=== PATIENT | female | born 1955 | race African-American/Black ===

== ENCOUNTER 2018-10-02 12:30 | Inpatient (IN) | payer OTHER ==
[2018-10-16] MEDS ORDERED: MIDAZOLAM HCL 2 MG/2 ML SINGLE DOSE VIAL ONE ×2 (10:35)
[2018-10-16] MEDS ORDERED: fentaNYL CITRATE 250 MCG/5 ML VIAL ONE (10:35)
[2018-10-16] MEDS ORDERED: SUCCINYLCHOLINE CHLORIDE 200 MG/10 ML VIAL ONE (10:35)
[2018-10-16] MEDS ORDERED: PROPOFOL 20 ML ONE (10:35)
[2018-10-16] MEDS ORDERED: ROCURONIUM BROMIDE 50 MG/5 ML VIAL ONE ×2 (10:36)
[2018-10-16] MEDS ORDERED: dilTIAZem HCL 50 MG/10 ML - 10 ML VIAL IVPB ONE (11:30)
--- NOTE | 2018-10-16 11:33 | HP ---
History & Physical Update - History History: No Change - Physical Physical: No Change - Assessment Assessment: No Change - Plan Plan: No Change (No change since h&p from 10/14.)
[2018-10-16] MEDS ORDERED: ceFAZolin SODIUM 1 GM VIAL IVPB ONE (12:10)
[2018-10-16] MEDS ORDERED: LIDOCAINE 1%/EPI 1:100000 (50 ML MULTI DOSE VIAL) NR ONE ×2 (12:51)
[2018-10-16] MEDS ORDERED: BUPIVACAINE HCL/PF (5 MG/ML) 30 ML VIAL IJ ONE (12:53)
[2018-10-16] MEDS ORDERED: BUPIVACAINE HCL 0.5% 250 MG/50 ML VIAL IJ ONE ×2 (12:55)
[2018-10-16] MEDS ORDERED: NEOSTIGMINE METHYLSULFATE 0.5 MG/1 ML - 10 ML MDV ONE (13:46)
[2018-10-16] MEDS ORDERED: oxyCODONE HCL 5 MG TABLET PO PRN ×2 (14:45)
[2018-10-16] MEDS ORDERED: ALBUTEROL SO4 8 GM HFA INHALER IH PRN (14:53)
[2018-10-16] MEDS ORDERED: morphine CARPU-JECT 2 MG/1 ML DISP.SYRIN IVPUSH PRN (15:02)
[2018-10-16] MEDS ORDERED: ACETAMINOPHEN 1000 MG/100 ML VIAL (NON FORMULARY) IVPB PRN (15:06)
--- NOTE | 2018-10-16 15:08 | OPR ---
Patient Name: Charlene Murray MR#: [id number] Procedure Date: 10/16/2018 Date of Admission: 10/16/2018 Inpatient Procedure Preoperative Diagnosis: 1. Lung cancer; 2. COPD; 3. Former smoker; 4. Schizo-affective disorder; Postoperative Diagnosis: same Procedure: 1. Flexible bronchoscopy; 2. Left vats wedge resection x 2; 3. Lymph node sampling; 4. Intercostal nerve block. Indication: as above Surgeon(s): Dr. Alex Owens; Cosurgeon: Dr. Shabana Gonzalez. Anesthesia: General Endotracheal Wound Classification: Clean Antibiotic Prophylaxis: cefazolin Findings: 1. Bronchoscopy: Normal 2. Thoracoscopy: lesion in LLL superior segment, 50cc serous fluid in chest; lesion in LLL near pulmonary ligament; Specimens: Left lower lobe wedge x 2; pleural fluid; final margin; lymph node Complications: none Drains / Tubes / Catheters: 1 chest tube. Hardware / Implants: na Blood / Fluid Losses: 50cc. Blood / Fluids Administered: per anesthesia Post-Operative Condition: stable Indications: This patient is a 63year-old female referred from Dr. Cole for resection of a pulmonary nodule. She was explained the risks, benefits, and alternatives of a bronchoscopy and left lung resection, and she agreed and understood. All questions were answered. Details of Procedure: The patient was taken into the operating room and placed supine on the table. She was monitored with pulse oximetry and blood pressure monitoring, including an arterial line. Sequential compression devices were placed. Subcutaneous heparin was given and a hillman catheter was placed. She was given sedation and an endotracheal tube was placed. A bronchoscopy was performed to view the airway and for operative planning. Lung isolation was then achieved. She was then positioned in the right lateral decubitus position and lung isolation was confirmed. The chest was prepared and draped in sterile fashion. We placed three ports. We then palpated the lesion. Next we aspirated a small amount of serous fluid and sent it for cytology. There were no pleural lesions. We then divided the pulmonary ligament and sampled level 9. We then performed a lower lobe wedge resection. It was removed through a protected wound. We then identified another nodule in the basilar segment and removed it. We then obtained hemostasis. There was no air- leak. We placed a chest tube and secured it. The lung was expanded again. Wounds were closed with absorbable sutures after expanding the lung. Sterile dressings were placed. The patient was then awakened and extubated. She tolerated the procedure well but was slow in waking up. She will be recovered in the ICU. I will follow her as an inpatient and outpatient after surgery.
[2018-10-16] MEDS ORDERED: ALBUTEROL SO4 0.083% IH SOL 2.5 MG/3 ML VIAL.NEB. NEB ONE ×2 (15:14→16:04)
--- NOTE | 2018-10-16 15:36 | CONSULT ---
Consultation: ICU team REQUESTING PROVIDER: DR Owens CONSULT REQUEST: We have been asked to medically evaluate this patient for ( Post op monitoring ). HISTORY OF PRESENT ILLNESS: 63 y/o f with h/o schizophrenia, asthma/COPD, tobacco dependence quit 2017, and LLL adenocarcinoma,with 1 block dyspnea presents to [facility] for elective Left VATS wedge resection with possible thoracotomy/lobectomy and lymph node sampling. Pt underwent flexible bronchoscopy with left VATS wedge resection x 2; and Lymph node sampling; on the morning of 10/16 without apparent complication and is now admitted to the ICU intubated. She was extubated soon after arrival and is stable on NRB. Pt with left chest tube to LWS. POD#0 REVIEW OF SYSTEMS: CONSTITUTIONAL: Absent: fever, chills, diaphoresis, generalized weakness, malaise, loss of appetite, weight change HEENT: Absent: rhinorrhea, nasal congestion, throat pain, throat swelling, difficulty swallowing, mouth swelling, ear pain, eye pain, visual changes CARDIOVASCULAR: Absent: chest pain, syncope, palpitations, irregular heart rate, lightheadedness , peripheral edema RESPIRATORY: Absent: cough, shortness of breath, dyspnea with exertion, orthopnea, wheezing, stridor, hemoptysis GASTROINTESTINAL: Absent: abdominal pain, abdominal distension, nausea, vomiting, diarrhea, constipation, melena, hematochezia GENITOURINARY: Absent: dysuria, frequency, urgency, hesitancy, hematuria, flank pain, genital pain MUSCULOSKELETAL: Absent: myalgia, arthralgia, joint swelling, back pain, neck pain SKIN: Absent: rash, itching, pallor HEMATOLOGIC/IMMUNOLOGIC: Absent: easy bleeding, easy bruising, lymphadenopathy, frequent infections ENDOCRINE: Absent: unexplained weight gain, unexplained weight loss, heat intolerance, cold intolerance NEUROLOGIC: Absent: headache, focal weakness or paresthesias, dizziness, unsteady gait, seizure, mental status changes, bladder or bowel incontinence PSYCHIATRIC: Absent: anxiety, depression, suicidal or homicidal ideation, hallucinations. PHYSICAL EXAMINATION Vital Signs - 24 hr 10/16/18 10/16/18 10/16/18 10:21 10:23 10:24 Temperature 98.1 F 98.1 F Pulse Rate 59 L 59 L Respiratory 20 20 Rate Blood Pressure 122/76 122/76 O2 Sat by Pulse 99 Oximetry (%) GENERAL: AAOx3 in NAD HEAD: Normal with no signs of trauma. EYES: Pupils equal, round and reactive to light, extraocular movements intact, sclera anicteric, NECK: Normal range of motion, supple LUNGS:decrease breath sound at the bases , chest tube on left side drainging with gravity HEART: Regular rate and rhythm, normal S1 and S2 without murmur, rub or gallop. ABDOMEN: Soft, nontender, not distended, normoactive bowel sounds, no guarding, UPPER EXTREMITIES: 2+ pulses, warm, well-perfused. No cyanosis. No clubbing. Cap refill <2 seconds. No peripheral edema. LOWER EXTREMITIES: 2+ pulses, warm, well-perfused. No calf tenderness. No peripheral edema. NEUROLOGICAL: Cranial nerves II-XII intact. Normal speech. PSYCHIATRIC: Cooperative. SKIN: Warm, dry, Laboratory Results - last 24 hr 10/16/18 09:40 Blood Type B POSITIVE Antibody Screen Negative Active Medications Generic Name Dose Route Start Last Admin Trade Name Freq PRN Reason Stop Dose Admin Acetaminophen 1,000 mg 10/16/18 15:06 Ofirmev Injection - IVPB Q6H PRN PAIN LEVEL 4 - 6 Albuterol Sulfate 2 puff 10/16/18 14:53 Ventolin Hfa Inhaler - IH Q4HWA PRN SHORTNESS OF BREATH Chlorhexidine Gluconate 1 applic 10/16/18 22:00 Hibiclens For Decolonization - TP HS KEDAR Docusate Sodium 100 mg 10/16/18 22:00 Colace - PO TID KEDAR Fluoxetine HCl 20 mg 10/17/18 10:00 Prozac - PO DAILY KEDAR Heparin Sodium (Porcine) 5,000 unit 10/16/18 22:00 Heparin - SQ BID KEDAR Cefazolin Sodium 1 gm in 50 mls @ 100 mls/hr 10/16/18 20:00 Ancef 1 Gm Premixed Ivpb - IVPB 10/17/18 04:29 Q8H KEDAR Ipratropium Mineral 1 amp 10/16/18 16:00 Atrovent 0.02% Nebulizer - NEB RQID KEDAR [place] Carbonate 300 mg 10/16/18 22:00 Eskalith - PO BID KEDAR Mupirocin 1 applic 10/16/18 22:00 Bactroban Ointment (For Decolonization) - NS 10/21/18 21:59 BID [facility] Non-Formulary Medication 1 puff 10/17/18 10:00 Umeclidinium [place]eral [Incruse Ellipta] IH DAILY KEDAR Olanzapine 15 mg 10/17/18 10:00 Zyprexa - PO DAILY KEDAR Oxycodone HCl 5 mg 10/16/18 14:45 Roxicodone - PO Q4H PRN PAIN LEVEL 1-5 Senna 2 tab 10/16/18 22:00 Senna - PO HS KEDAR CBC, BMP 10/16/18 17:00 ASSESSMENT/PLAN: 63 y/o f with h/o schizophrenia, asthma/COPD, tobacco dependence quit 2016, and LLL adenocarcinoma,with 1 block dyspnea presents to [facility] for elective Left VATS wedge resection # S/P Flexible bronchoscopy; with Left vats wedge resection x 2; and Lymph node sampling; Intercostal nerve block. 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 Thank you for this consultative opportunity. Visit type - Emergency Visit Emergency Visit: Yes ED Registration Date: 10/16/18 Care time: The patient presented to the Emergency Department on the above date and was hospitalized for further evaluation of their emergent condition. - New Patient This patient is new to me today: Yes Date on this admission: 10/16/18 - Critical Care Critical Care patient: Yes Total Critical Care Time (in minutes): 45 Critical Care Statement: The care of this patient involved high complexity decision making to prevent further life threatening deterioration of the patient 's condition and/or to evaluate & treat vital organ system(s) failure or risk of failure.
[2018-10-16] MEDS ORDERED: ONDANSETRON 4 MG/2 ML VIAL IVPUSH PRN (16:01)
[2018-10-16] MEDS: IPRATROPIUM BR 0.02% 0.5 MG/2.5 ML VIAL.NEB. NEB SCH ×2 (16:02→20:30)
[2018-10-16] MEDS ORDERED: LACTATED RINGERS SOLUTION 1,000 ML IV SCH (16:15)
--- NOTE | 2018-10-16 16:27 | HP ---
Admitting History and Physical - Admission Chief Complaint: Primary Lung adenocarcinoma History of Present Illness: 63 y/o f with h/o schizophrenia, asthma/COPD, tobacco dependence quit 2017, and LLL adenocarcinoma,with 1 block dyspnea presents to [facility] for elective Left VATS wedge resection with possible thoracotomy/lobectomy and lymph node sampling. Pt underwent flexible bronchoscopy with left VATS wedge resection x 2; and Lymph node sampling; on the morning of 10/16 without apparent complication and is now admitted to the ICU intubated. She was extubated soon after arrival and is stable on NRB. Pt with left chest tube to LWS. History Source: Medical Record - Past Medical History Pulmonary: Yes: Asthma, COPD ...: No Psych: Yes: Schizophrenia - Past Surgical History Past Surgical History: Yes: Appendectomy Additional Past Surgical History: thymic cyst resection hemorroidectomy - Smoking History Smoking history: Former smoker Have you smoked in the past 12 months: No Aproximately how many cigarettes per day: 1 (PPD) If you are a former smoker, when did you quit?: 2017 - Alcohol/Substance Use Hx Alcohol Use: No History of Substance Use: reports: None - Social History ADL: Independent History of Recent Travel: No Home Medications - Allergies Allergies/Adverse Reactions: Allergies Allergy/AdvReac Type Severity Reaction Status Date / Time No Known Allergies Allergy Verified 10/16/18 10:32 - Home Medications Home Medications: Ambulatory Orders [employer] Carbonate [Eskalith -] 300 mg PO BID 05/15/18 Fluoxetine HCl [Prozac] 20 mg PO DAILY 05/16/18 Albuterol Sulfate Inhaler - [Ventolin HFA Inhaler -] 2 puff IH Q4HWA PRN Umeclidinium [place] [Incruse Ellipta] 1 puff IH DAILY 05/17/18 Aspirin 162 mg PO DAILY 09/27/18 Olanzapine [Zyprexa -] 15 mg PO DAILY 10/16/18 Family Disease History - Family Disease History Family Disease History: Other: Father ( (80s) PNA), Mother (alive unknown health hx) Review of Systems - Review of Systems Constitutional: reports: Weakness Eyes: reports: No Symptoms HENT: reports: No Symptoms Neck: reports: No Symptoms Cardiovascular: reports: Shortness of Breath Respiratory: reports: Cough, Exercise Intolerance (decreased), SOB on Exertion Gastrointestinal: reports: Nausea (post -op) Genitourinary: reports: No Symptoms, Other (hillman present) Breasts: reports: No Symptoms Reported Musculoskeletal: reports: No Symptoms Integumentary: reports: No Symptoms Neurological: reports: No Symptoms Endocrine: reports: No Symptoms Hematology/Lymphatic: reports: No Symptoms Physical Examination Vital Signs: Vital Signs Temperature 98.1 F 10/16/18 10:24 Pulse Rate 59 L 10/16/18 10:24 Respiratory Rate 20 10/16/18 10:24 Blood Pressure 122/76 10/16/18 10:24 O2 Sat by Pulse Oximetry (%) 99 10/16/18 10:23 Constitutional: Yes: Well Nourished, No Distress, Calm Eyes: Yes: Conjunctiva Clear, PERRL HENT: Yes: Atraumatic, Normocephalic Neck: Yes: Supple, Trachea Midline Cardiovascular: Yes: Bradycardia Respiratory: Yes: Regular, Diminished (Left lung monet), Other (NRB) Gastrointestinal: Yes: Soft, Hypoactive Bowel Sounds ...Rectal Exam: Yes: Deferred Renal/: Yes: Hillman Present Musculoskeletal: Yes: Muscle Weakness Extremities: Yes: WNL Edema: No Peripheral Pulses WNL: Yes Peripheral Pulses: Left Radial: 2+, Right Radial: 2+, Left Doralis Pedis: 2+, Right Dorsalis Pedis: 2+ Integumentary: Yes: WNL Wound/Incision: Yes: Dressing Dry and Intact Neurological: Yes: Alert, Oriented ...Motor Strength: WNL Psychiatric: Yes: Alert, Oriented Imaging - Results Chest X-ray: Pending, Report Reviewed (CXR 09/27/2018 Impression: 2 views of the chest reveal sign of infiltrate or failure. There is an ill-defined lung density in the left midlung field with some fullness of the right superior mediastinum by the thoracic inlet. There is an unfolded aorta, normal heart, normal shayy. There are degenerative changes.) Cat Scan: Report Reviewed (CT chest 08/30/2018 Impression: The heart is normal in size. There is trace pleural and small pericardial effusion. There is emphysema. There is scarring in the lingula and right middle lobe. There is a spiculated nodule neoplasms.), Image Reviewed (CT chest 09/27/2018 Impression: increase in size of the mediastinal lesion to 8x7x5.3cm (previously 6x4.4x2.3cm) . Spiculated lesion LLL 1.7x 1.1cm.) Other: Report Reviewed (CT guided biopsy 05/16/2018 Impression: invasive adenocarcinoma, poorly differentiated. CK7 and TTF-1 positive.) Problem List - Problems (1) COPD with asthma Assessment/Plan: restart incruse inh daily albuterol nebs PRN ventolin inh qid Code(s): J44.9 - CHRONIC OBSTRUCTIVE PULMONARY DISEASE, UNSPECIFIED (2) Adenocarcinoma, lung Assessment/Plan: s/p wedge resection s/p extubation--> NRB. monitor resp status/ABG and transition to NC as tolerated progress diet slowly, clear liquids this afternoon. cefAzolin 1gm Q8hrs LR @ 75ml/hr x 1L Oxycodone 5mg qhrs PRN pain chest tube to LWS, closely monitor output Code(s): C34.90 - MALIGNANT NEOPLASM OF UNSP PART OF UNSP BRONCHUS OR LUNG (3) Schizophrenia Assessment/Plan: continue prozac 20mg daily, lithium 300mg BID and zyprexa 15mg daily Code(s): F20.9 - SCHIZOPHRENIA, UNSPECIFIED (4) Prophylactic measure Assessment/Plan: bowel regimen: senna and colace Zofran PRN nausea Tylenol PRN temp > 101.0 OOB to chair in AM trend WBC and temp curve DVT PPX: SC heparin BID Code(s): Z29.9 - ENCOUNTER FOR PROPHYLACTIC MEASURES, UNSPECIFIED Assessment/Plan DISPO: Full code Fall precautions Home when stable pt will f/u with oncology and pulm upon discharge Visit type - Emergency Visit Emergency Visit: No - New Patient This patient is new to me today: Yes Date on this admission: 10/16/18 - Critical Care Critical Care patient: Yes Total Critical Care Time (in minutes): 40 Critical Care Statement: The care of this patient involved high complexity decision making to prevent further life threatening deterioration of the patient 's condition and/or to evaluate & treat vital organ system(s) failure or risk of failure.
[2018-10-16 16:50] LABS: ARTERIAL BLD GAS O2 SATURATION 94.6 % (90-98.9); ARTERIAL BLOOD GAS BASE EXCESS -3.4 meq/l (-2-2); ARTERIAL BLOOD GAS PCO2 50.2 mmHg (35-45); ARTERIAL BLOOD GAS PO2 86.1 mmHg (80-100); ARTERIAL BLOOD GAS pH 7.29 (7.35-7.45)
[2018-10-16 16:52] LABS: ALLENS TEST POSITIVE
[2018-10-16 18:16] LABS: HEMATOCRIT 40.5 % (32.4-45.2); HEMOGLOBIN 13.7 GM/dL (10.7-15.3); MCH 33.7 pg (25.7-33.7); MCHC 33.8 g/dl (32.0-36.0); MEAN CELL VOLUME 99.8 fl (80-96); MEAN PLT VOLUME 8.8 fl (7.5-11.1); PLATELET COUNT 139 K/MM3 (134-434); RBC 4.06 M/mm3 (3.60-5.2); RDW 15.3 % (11.6-15.6); WHITE BLOOD COUNT 7.6 K/mm3 (4.0-10.0)
[2018-10-16 18:50] LABS: ALBUMIN 3.4 g/dl (3.4-5.0); ALK PHOS 75 U/L (45-117); ANION GAP 8 MMOL/L (8-16); BILIRUBIN,TOTAL 0.2 mg/dL (0.2-1); BLOOD UREA NITROGEN 10 mg/dL (7-18); CALCIUM 8.6 mg/dL (8.5-10.1); CHLORIDE 113 mmol/L (98-107); CO2 25 mmol/L (21-32); CREATININE 0.6 mg/dL (0.55-1.3); GLUCOSE,RANDOM 118 mg/dL (74-106); MAGNESIUM 1.8 mg/dL (1.8-2.4); PHOSPHOROUS 3.4 mg/dL (2.5-4.9); SGOT/AST 12 U/L (15-37); SGPT/ALT 20 U/L (13-61); SODIUM 146 mmol/L (136-145); TOT PROT 5.4 g/dl (6.4-8.2)
[2018-10-16] MEDS ORDERED: PT OWN MED DRAWER 7, Y5N ONE (20:53)
[2018-10-16] MEDS: CEFAZOLIN 1 GM/D5W 1 GM/50 ML BAG IVPB SCH (21:20)
[2018-10-16] MEDS: DOCUSATE SODIUM 100 MG CAPSULE (FP) PO SCH (21:22)
[2018-10-16] MEDS: SENNOSIDES 8.6MG TABLET (FP) PO SCH (21:22)
[2018-10-16] MEDS: HEPARIN NA (PORCINE) 5,000 UNITS/ML 1ML VIAL SQ SCH (21:22)
[2018-10-16] MEDS: MUPIROCIN 2% TOPICAL OINTMENT FOR DECOLONIZATION NS SCH (21:28)
[2018-10-16] MEDS: CHLORHEXIDINE GLUCONATE 4% CLEANSER FOR DECOLONIZATION TP SCH (22:30)
[2018-10-16] MEDS: LITHIUM CARBONATE 300 MG CAPSULE (FP) PO SCH (22:30)
[2018-10-17] MEDS ORDERED: oxyCODONE HCL 5 MG TABLET PO ONE ×2 (01:15→01:21)
[2018-10-17] MEDS: CEFAZOLIN 1 GM/D5W 1 GM/50 ML BAG IVPB SCH (04:00)
[2018-10-17 06:16] LABS: BASO % 0.1 % (0-2.0); HEMATOCRIT 36.2 % (32.4-45.2); HEMOGLOBIN 12.5 GM/dL (10.7-15.3); LYMPH % 13.5 % (8-40); MCH 33.6 pg (25.7-33.7); MCHC 34.6 g/dl (32.0-36.0); MEAN CELL VOLUME 97.1 fl (80-96); MEAN PLT VOLUME 8.5 fl (7.5-11.1); MONO % 7.5 % (3.8-10.2); NEUT % 78.9 % (42.8-82.8); PLATELET COUNT 140 K/MM3 (134-434); RBC 3.73 M/mm3 (3.60-5.2); RDW 14.3 % (11.6-15.6); WHITE BLOOD COUNT 6.1 K/mm3 (4.0-10.0)
[2018-10-17] MEDS: DOCUSATE SODIUM 100 MG CAPSULE (FP) PO SCH ×3 (06:17→21:05)
[2018-10-17 06:27] LABS: INR 1.07 (0.83-1.09); PROTHROMBIN TIME (PATIENT) 12.6 SEC (9.7-13.0)
[2018-10-17 06:29] LABS: ACTIVATED PTT 29.1 SECONDS (25.2-36.5)
[2018-10-17 06:43] LABS: ALK PHOS 67 U/L (45-117); ANION GAP 4 MMOL/L (8-16); BILIRUBIN,TOTAL 0.4 mg/dL (0.2-1); BLOOD UREA NITROGEN 8 mg/dL (7-18); CALCIUM 8.5 mg/dL (8.5-10.1); CHLORIDE 112 mmol/L (98-107); CO2 28 mmol/L (21-32); CREATININE 0.6 mg/dL (0.55-1.3); GLUCOSE,RANDOM 100 mg/dL (74-106); PHOSPHOROUS 2.9 mg/dL (2.5-4.9); POTASSIUM 3.7 mmol/L (3.5-5.1); SGOT/AST 10 U/L (15-37); SGPT/ALT 14 U/L (13-61); SODIUM 144 mmol/L (136-145); TOT PROT 5.1 g/dl (6.4-8.2)
[2018-10-17] MEDS: IPRATROPIUM BR 0.02% 0.5 MG/2.5 ML VIAL.NEB. NEB SCH ×4 (08:15→20:10)
--- NOTE | 2018-10-17 08:40 | PN ---
Physical Exam: SUBJECTIVE: Patient seen and examined this morning in ICU. S/P Left VATS wedge resection and was extubated in the ICU yesterday. No acute events overnight. Has 5/10 Dull, pain that only occurs with movement and improves with pain medication. Chest tube in place. Surgical site intact with overlying dressing, no active drainage, no surrounding erythema or edema. Denies any overnight fevers, chills, chest pain, SOB, Nausea, vomiting, diarrhea, constipation. OBJECTIVE: Vital Signs Period Temp Pulse Resp BP Sys/Ernst Pulse Ox Last 24 Hr 96.2 F-98.1 F 50-82 14-24 110-144/55-84 92-100 GENERAL: A&Ox3, NAD HEAD: NCAT EYES: PERRL, EOMI ENT: Moist mucous membranes. NECK: Supple. LUNGS: Diminished breath sounds at the bases, No wheezes, no crackles HEART: Regular rate and rhythm, S1, S2 without murmur ABDOMEN: Soft, nontender, nondistended, + bowel sounds, no guarding EXTREMITIES: 2+ pulses, warm, well-perfused, no edema. NEUROLOGICAL: Cranial nerves II through XII grossly intact. Normal speech. Gross sensation intact globally. 5/5 muscle strength b/l SKIN: Warm, dry. Midaxillary Left Chest tube insertion site C/D/I. Surgical site dressing on the Left Back C/D/I. Laboratory Results - last 24 hr 10/16/18 10/17/18 10/17/18 17:00 05:30 05:30 WBC 6.1 RBC 3.73 Hgb 12.5 Hct 36.2 MCV 97.1 H MCH 33.6 MCHC 34.6 RDW 14.3 Plt Count 140 MPV 8.5 Absolute Neuts (auto) 4.8 Neutrophils % 78.9 D Lymphocytes % 13.5 D Monocytes % 7.5 Eosinophils % 0.0 Basophils % 0.1 Nucleated RBC % 0 PT with INR INR PTT (Actin FS) Anticoagulation Therapy Puncture Site ABG pH ABG pCO2 at Pt Temp ABG pO2 at Pt Temp ABG HCO3 ABG O2 Sat (Measured) ABG O2 Content ABG Base Excess Tien Test O2 Delivery Device Oxygen Flow Rate Vent Mode Vent Rate Mechanical Rate Pressure Support Vent Sodium 146 H 144 Potassium 4.0 3.7 Chloride 113 H 112 H Carbon Dioxide 25 28 Anion Gap 8 4 L BUN 10 8 Creatinine 0.6 0.6 Creat Clearance w eGFR > 60 > 60 Random Glucose 118 H 100 Calcium 8.6 8.5 Phosphorus 3.4 2.9 Magnesium 1.8 2.0 Total Bilirubin 0.2 0.4 AST 12 L 10 L ALT 20 14 Alkaline Phosphatase 75 67 Total Protein 5.4 L 5.1 L Albumin 3.4 3.0 L Blood Type Antibody Screen 10/17/18 05:30 WBC RBC Hgb Hct MCV MCH MCHC RDW Plt Count MPV Absolute Neuts (auto) Neutrophils % Lymphocytes % Monocytes % Eosinophils % Basophils % Nucleated RBC % PT with INR 12.60 INR 1.07 PTT (Actin FS) 29.1 Anticoagulation Therapy Puncture Site ABG pH ABG pCO2 at Pt Temp ABG pO2 at Pt Temp ABG HCO3 ABG O2 Sat (Measured) ABG O2 Content ABG Base Excess Tien Test O2 Delivery Device Oxygen Flow Rate Vent Mode Vent Rate Mechanical Rate Pressure Support Vent Sodium Potassium Chloride Carbon Dioxide Anion Gap BUN Creatinine Creat Clearance w eGFR Random Glucose Calcium Phosphorus Magnesium Total Bilirubin AST ALT Alkaline Phosphatase Total Protein Albumin Blood Type Antibody Screen Microbiology 10/16/18 12:45 Tissue-Other ANA LAURA Preparation - Preliminary 10/16/18 12:45 Tissue-Other Fungal Culture - Preliminary Active Medications Acetaminophen (Ofirmev Injection -) 1,000 mg IVPB Q6H PRN PRN Reason: PAIN LEVEL 4 - 6 Last Admin: 10/16/18 21:26 Dose: 1,000 mg Albuterol Sulfate (Ventolin Hfa Inhaler -) 2 puff IH Q4HWA PRN PRN Reason: SHORTNESS OF BREATH Chlorhexidine Gluconate (Hibiclens For Decolonization -) 1 applic TP HS [facility] Last Admin: 10/16/18 22:30 Dose: 1 applic Docusate Sodium (Colace -) 100 mg PO TID [facility] Last Admin: 10/17/18 06:17 Dose: 100 mg Fluoxetine HCl (Prozac -) 20 mg PO DAILY [facility] Heparin Sodium (Porcine) (Heparin -) 5,000 unit SQ BID [facility] Last Admin: 10/16/18 21:22 Dose: 5,000 unit Lactated Ringer's (Lactated Ringers Solution) 1,000 mls @ 75 mls/hr IV ASDIR [facility] Last Admin: 10/17/18 01:29 Dose: 75 mls/hr Ipratropium [place] (Atrovent 0.02% Nebulizer -) 1 amp NEB RQID [facility] Last Admin: 10/16/18 20:30 Dose: 1 amp [place] Carbonate (Eskalith -) 300 mg PO BID [facility] Last Admin: 10/16/18 22:30 Dose: 300 mg Mupirocin (Bactroban Ointment (For Decolonization) -) 1 applic NS BID [facility] Stop: 10/21/18 21:59 Last Admin: 10/16/18 21:28 Dose: 1 applic Non-Formulary Medication (Umeclidinium [place] [Incruse Ellipta]) 1 puff IH DAILY [facility] Olanzapine (Zyprexa -) 15 mg PO DAILY [facility] Ondansetron HCl (Zofran Injection) 4 mg IVPUSH Q6H PRN PRN Reason: NAUSEA AND/OR VOMITING Oxycodone HCl (Roxicodone -) 10 mg PO Q4H PRN PRN Reason: PAIN LEVEL 6-10 Senna (Senna -) 2 tab PO HS [facility] Last Admin: 10/16/18 21:22 Dose: 2 tab ASSESSMENT/PLAN: 63 y/o F with PMHx of Schizophrenia, Asthma/COPD, LLL adenocarcinoma will be monitored in ICU s/p Left VATS wedge resection. #Neuro Hx of Schizophrenia -Resume home dose Fluoxetine, [place], Olanzapine #Cardio -No hx of Cardiac disease -No Active Issues, Continue to monitor #Pulmonary Hx of COPD with Asthma -Extubated 10/16 -Saturating well via 3L Nasal [place] -Continue Supplemental O2 to maintain SpO2 >90% -Chest Tube in Place -Daily CXR -Continue Albuterol, Ipratropium, Umeclidinium [place] -CXR (10/16): A single view the chest reveals a weak inspiration with congestive changes, prominent mediastinum, left subcutaneous air and left chest tube. A gross pneumothorax is not seen #GI -Bowel Regimen via Colace, Senna -Ondansetron for Nausea #Renal -No Active Issues, Continue to monitor #Heme/Onc Adenocarcinoma of the Lung -S/P Left VATS wedge resection POD#1 -Pain control via Acetaminophen, Oxycodone -LR @ 75 mls/hr -Diet advanced to Regular as per surgery -Keep HOB elevated -Continue Incentive Spirometry -Maintain Chest tube to water seal -Pathology report pending #Endo -No Active Issues, Continue to monitor #ID -S/P Cefazolin perioperatively -Remains Afebrile, No elevated WBC count -No Active Issues, Continue to monitor #FEN -LR @ 75 mls/hr -Replete Lytes PRN -Regular Diet #PPx -DVT: Heparin TID Code status: Full Code Dispo: Transfer to Tele Visit type - Emergency Visit Emergency Visit: Yes ED Registration Date: 10/16/18 Care time: The patient presented to the Emergency Department on the above date and was hospitalized for further evaluation of their emergent condition. - New Patient This patient is new to me today: Yes Date on this admission: 10/17/18 - Critical Care Critical Care patient: Yes Total Critical Care Time (in minutes): 45 Critical Care Statement: The care of this patient involved high complexity decision making to prevent further life threatening deterioration of the patient 's condition and/or to evaluate & treat vital organ system(s) failure or risk of failure.
[2018-10-17] MEDS ORDERED: PT OWN MED DRAWER 7, Y5N ONE (08:54)
[2018-10-17] MEDS: FLUoxetine HCL 20 MG CAPSULE (FP) PO SCH (09:04)
[2018-10-17] MEDS: LITHIUM CARBONATE 300 MG CAPSULE (FP) PO SCH ×2 (09:05→21:05)
[2018-10-17] MEDS: OLANZapine 5 MG TABLET PO SCH (09:05)
[2018-10-17] MEDS: MUPIROCIN 2% TOPICAL OINTMENT FOR DECOLONIZATION NS SCH ×2 (09:06→21:05)
[2018-10-17] MEDS: HEPARIN NA (PORCINE) 5,000 UNITS/ML 1ML VIAL SQ SCH ×3 (09:07→21:05)
--- NOTE | 2018-10-17 09:24 | PN ---
Progress Note (short form) - Note Progress Note: Anesthesia postop note 63 y/o F s/p GA for VATS POD#1, vss, aaox3, pain well controlled, no complaints. No anesthesia complications.
[2018-10-17] MEDS ORDERED: PATIENT'S OWN MEDICATION (NON-FORMULARY) (Umeclidinium Bromide [Incruse Ellipta] 1 PUFF) IH SCH (10:00)
--- NOTE | 2018-10-17 10:47 | PN ---
Progress Note (short form) - Note Progress Note: POD#1 s/p vats lung resection x 2 for cancer Looks great Pain controlled well Vitals wnl OOB to chair already. Drainage from ct high but serosanguineous plan: Ambulate, can transfer to SDU or other monitored unit, water seal chest tube with cxr (if drainage low, dc tomorrow), appreciate hospitalist team with help managing her.
--- NOTE | 2018-10-17 12:25 | PN ---
Physical Exam: SUBJECTIVE: Patient seen and examined. Complains of itching near insertion site , no sob, pain managed with pain meds OBJECTIVE: Vital Signs Period Temp Pulse Resp BP Sys/Ernst Pulse Ox Last 24 Hr 96.2 F-96.6 F 50-82 14-24 110-144/55-84 92-100 PE Neuro: alert, awake, cn 2-12intact HEENT: dry mm Pulm: course, scattered rhonchi, + left CT with serosanguinous drainage CV: s1s2 rrr no mrg Abd: s nt nd + bs Ext: no le edema Laboratory Results - last 24 hr 10/16/18 10/16/18 10/16/18 16:42 17:00 17:00 WBC 7.6 RBC 4.06 Hgb 13.7 Hct 40.5 MCV 99.8 H MCH 33.7 MCHC 33.8 RDW 15.3 D Plt Count 139 MPV 8.8 Absolute Neuts (auto) Neutrophils % Lymphocytes % Monocytes % Eosinophils % Basophils % Nucleated RBC % PT with INR INR PTT (Actin FS) Anticoagulation Therapy No Result Required. Puncture Site Left radial ABG pH 7.29 L ABG pCO2 at Pt Temp 50.2 H ABG pO2 at Pt Temp 86.1 ABG HCO3 23.1 ABG O2 Sat (Measured) 94.6 ABG O2 Content 17.5 ABG Base Excess -3.4 L Tien Test Positive O2 Delivery Device Nrb Oxygen Flow Rate Yes Vent Mode No Result Required. Vent Rate No Result Required. Mechanical Rate No Result Required. Pressure Support Vent No Result Required. Sodium 146 H Potassium 4.0 Chloride 113 H Carbon Dioxide 25 Anion Gap 8 BUN 10 Creatinine 0.6 Creat Clearance w eGFR > 60 Random Glucose 118 H Calcium 8.6 Phosphorus 3.4 Magnesium 1.8 Total Bilirubin 0.2 AST 12 L ALT 20 Alkaline Phosphatase 75 Total Protein 5.4 L Albumin 3.4 10/17/18 10/17/18 10/17/18 05:30 05:30 05:30 WBC 6.1 RBC 3.73 Hgb 12.5 Hct 36.2 MCV 97.1 H MCH 33.6 MCHC 34.6 RDW 14.3 Plt Count 140 MPV 8.5 Absolute Neuts (auto) 4.8 Neutrophils % 78.9 D Lymphocytes % 13.5 D Monocytes % 7.5 Eosinophils % 0.0 Basophils % 0.1 Nucleated RBC % 0 PT with INR 12.60 INR 1.07 PTT (Actin FS) 29.1 Anticoagulation Therapy Puncture Site ABG pH ABG pCO2 at Pt Temp ABG pO2 at Pt Temp ABG HCO3 ABG O2 Sat (Measured) ABG O2 Content ABG Base Excess Tien Test O2 Delivery Device Oxygen Flow Rate Vent Mode Vent Rate Mechanical Rate Pressure Support Vent Sodium 144 Potassium 3.7 Chloride 112 H Carbon Dioxide 28 Anion Gap 4 L BUN 8 Creatinine 0.6 Creat Clearance w eGFR > 60 Random Glucose 100 Calcium 8.5 Phosphorus 2.9 Magnesium 2.0 Total Bilirubin 0.4 AST 10 L ALT 14 Alkaline Phosphatase 67 Total Protein 5.1 L Albumin 3.0 L Active Medications Generic Name Dose Route Start Last Admin Trade Name Freq PRN Reason Stop Dose Admin Acetaminophen 1,000 mg 10/16/18 15:06 10/16/18 21:26 Ofirmev Injection - IVPB 1,000 mg Q6H PRN Administration PAIN LEVEL 4 - 6 Albuterol Sulfate 2 puff 10/16/18 14:53 Ventolin Hfa Inhaler - IH Q4HWA PRN SHORTNESS OF BREATH Chlorhexidine Gluconate 1 applic 10/16/18 22:00 10/16/18 22:30 Hibiclens For Decolonization - TP 1 applic HS [facility] Administration Docusate Sodium 100 mg 10/16/18 22:00 10/17/18 06:17 Colace - PO 100 mg TID [facility] Administration Fluoxetine HCl 20 mg 10/17/18 10:00 10/17/18 09:04 Prozac - PO 20 mg DAILY [facility] Administration Heparin Sodium (Porcine) 5,000 unit 10/16/18 22:00 10/17/18 09:07 Heparin - SQ 5,000 unit BID [facility] Administration Ipratropium [place] 1 amp 10/16/18 16:00 10/17/18 12:04 Atrovent 0.02% Nebulizer - NEB 1 amp RQID [facility] Administration [place] Carbonate 300 mg 10/16/18 22:00 10/17/18 09:05 Eskalith - PO 300 mg BID [facility] Administration Mupirocin 1 applic 10/16/18 22:00 10/17/18 09:06 Bactroban Ointment (For Decolonization) - NS 10/21/18 21:59 1 applic BID [facility] Administration Non-Formulary Medication 1 puff 10/17/18 10:00 Umeclidinium [place] [Incruse Ellipta] IH DAILY [facility] Olanzapine 15 mg 10/17/18 10:00 10/17/18 09:05 Zyprexa - PO 15 mg DAILY [facility] Administration Ondansetron HCl 4 mg 10/16/18 16:01 Zofran Injection IVPUSH Q6H PRN NAUSEA AND/OR VOMITING Oxycodone HCl 10 mg 10/17/18 00:58 Roxicodone - PO Q4H PRN PAIN LEVEL 6-10 Senna 2 tab 10/16/18 22:00 10/16/18 21:22 Senna - PO 2 tab HS [facility] Administration Assessment: 63 year old female with PMHx of Schizophrenia, Asthma/COPD, LLL adenocarcinoma s/p Left VATS wedge resection x2 for cancer 10/16. Plan: 1. LLE adenocarcinoma - s/p Left VATS - Maintain chest tube to water seal - Low drainage can dc per thoracic sx - Follow cultures 2. Hx of Schizophrenia -Resume home dose Fluoxetine, [place], Olanzapine 3. COPD/Asthma - No acute exacerbation -Continue Albuterol, Ipratropium, Umeclidinium [place] 4. DVT ppx - Heparin q8 Visit type - Emergency Visit Emergency Visit: Yes ED Registration Date: 10/16/18 Care time: The patient presented to the Emergency Department on the above date and was hospitalized for further evaluation of their emergent condition. - New Patient This patient is new to me today: Yes Date on this admission: 10/17/18 - Critical Care Critical Care patient: No
--- NOTE | 2018-10-17 13:08 | PN ---
Teaching Attending Note Name of Resident: Rhea Anand ATTENDING PHYSICIAN STATEMENT I saw and evaluated the patient. I reviewed the resident's note and discussed the case with the resident. I agree with the resident's findings and plan as documented. SUBJECTIVE: Patient seen and examined in the ICU. Awake and alert. Pain seems adequately controlled. Some left discomfort on deep breathing. CT to water seal. No air leak. CXR: No PTX , Left CT Intact Intake & Output 10/14/18 10/15/18 10/16/18 10/17/18 23:59 23:59 23:59 23:59 Intake Total 2625 1300 Output Total 670 340 Balance 1955 960 Weight 124 lb 15.998 oz 140 lb 3.424 oz Last Vital Signs Temp Pulse Resp BP Pulse Ox 96.6 F L 79 15 110/65 100 10/16/18 16:30 10/17/18 00:00 10/17/18 09:00 10/17/18 00:00 10/17/18 09:00 Active Medications Acetaminophen (Ofirmev Injection -) 1,000 mg IVPB Q6H PRN PRN Reason: PAIN LEVEL 4 - 6 Last Admin: 10/16/18 21:26 Dose: 1,000 mg Albuterol Sulfate (Ventolin Hfa Inhaler -) 2 puff IH Q4HWA PRN PRN Reason: SHORTNESS OF BREATH Chlorhexidine Gluconate (Hibiclens For Decolonization -) 1 applic TP HS [facility] Last Admin: 10/16/18 22:30 Dose: 1 applic Docusate Sodium (Colace -) 100 mg PO TID [facility] Last Admin: 10/17/18 06:17 Dose: 100 mg Fluoxetine HCl (Prozac -) 20 mg PO DAILY [facility] Last Admin: 10/17/18 09:04 Dose: 20 mg Heparin Sodium (Porcine) (Heparin -) 5,000 unit SQ TID [facility] Ipratropium [place] (Atrovent 0.02% Nebulizer -) 1 amp NEB RQID [facility] Last Admin: 10/17/18 12:04 Dose: 1 amp [place] Carbonate (Eskalith -) 300 mg PO BID [facility] Last Admin: 10/17/18 09:05 Dose: 300 mg Mupirocin (Bactroban Ointment (For Decolonization) -) 1 applic NS BID [facility] Stop: 10/21/18 21:59 Last Admin: 10/17/18 09:06 Dose: 1 applic Non-Formulary Medication (Umeclidinium [place] [Incruse Ellipta]) 1 puff IH DAILY [facility] Olanzapine (Zyprexa -) 15 mg PO DAILY [facility] Last Admin: 10/17/18 09:05 Dose: 15 mg Ondansetron HCl (Zofran Injection) 4 mg IVPUSH Q6H PRN PRN Reason: NAUSEA AND/OR VOMITING Oxycodone HCl (Roxicodone -) 10 mg PO Q4H PRN PRN Reason: PAIN LEVEL 6-10 Senna (Senna -) 2 tab PO HS [facility] Last Admin: 10/16/18 21:22 Dose: 2 tab GENERAL: AAOx3 in NAD HEAD: Normal with no signs of trauma. EYES: Pupils equal, round and reactive to light, extraocular movements intact, sclera anicteric, NECK: Normal range of motion, supple LUNGS:decrease breath sound at the bases , chest tube on left side drainging with gravity HEART: Regular rate and rhythm, normal S1 and S2 without murmur, rub or gallop. ABDOMEN: Soft, nontender, not distended, normoactive bowel sounds, no guarding, UPPER EXTREMITIES: 2+ pulses, warm, well-perfused. No cyanosis. No clubbing. Cap refill <2 seconds. No peripheral edema. LOWER EXTREMITIES: 2+ pulses, warm, well-perfused. No calf tenderness. No peripheral edema. NEUROLOGICAL: Non-focal PSYCHIATRIC: Cooperative. SKIN: Warm, dry Laboratory Results - last 24 hr 10/16/18 10/16/18 10/16/18 16:42 17:00 17:00 WBC 7.6 RBC 4.06 Hgb 13.7 Hct 40.5 MCV 99.8 H MCH 33.7 MCHC 33.8 RDW 15.3 D Plt Count 139 MPV 8.8 Absolute Neuts (auto) Neutrophils % Lymphocytes % Monocytes % Eosinophils % Basophils % Nucleated RBC % PT with INR INR PTT (Actin FS) Anticoagulation Therapy No Result Required. Puncture Site Left radial ABG pH 7.29 L ABG pCO2 at Pt Temp 50.2 H ABG pO2 at Pt Temp 86.1 ABG HCO3 23.1 ABG O2 Sat (Measured) 94.6 ABG O2 Content 17.5 ABG Base Excess -3.4 L Tien Test Positive O2 Delivery Device Nrb Oxygen Flow Rate Yes Vent Mode No Result Required. Vent Rate No Result Required. Mechanical Rate No Result Required. Pressure Support Vent No Result Required. Sodium 146 H Potassium 4.0 Chloride 113 H Carbon Dioxide 25 Anion Gap 8 BUN 10 Creatinine 0.6 Creat Clearance w eGFR > 60 Random Glucose 118 H Calcium 8.6 Phosphorus 3.4 Magnesium 1.8 Total Bilirubin 0.2 AST 12 L ALT 20 Alkaline Phosphatase 75 Total Protein 5.4 L Albumin 3.4 10/17/18 10/17/18 10/17/18 05:30 05:30 05:30 WBC 6.1 RBC 3.73 Hgb 12.5 Hct 36.2 MCV 97.1 H MCH 33.6 MCHC 34.6 RDW 14.3 Plt Count 140 MPV 8.5 Absolute Neuts (auto) 4.8 Neutrophils % 78.9 D Lymphocytes % 13.5 D Monocytes % 7.5 Eosinophils % 0.0 Basophils % 0.1 Nucleated RBC % 0 PT with INR 12.60 INR 1.07 PTT (Actin FS) 29.1 Anticoagulation Therapy Puncture Site ABG pH ABG pCO2 at Pt Temp ABG pO2 at Pt Temp ABG HCO3 ABG O2 Sat (Measured) ABG O2 Content ABG Base Excess Tien Test O2 Delivery Device Oxygen Flow Rate Vent Mode Vent Rate Mechanical Rate Pressure Support Vent Sodium 144 Potassium 3.7 Chloride 112 H Carbon Dioxide 28 Anion Gap 4 L BUN 8 Creatinine 0.6 Creat Clearance w eGFR > 60 Random Glucose 100 Calcium 8.5 Phosphorus 2.9 Magnesium 2.0 Total Bilirubin 0.4 AST 10 L ALT 14 Alkaline Phosphatase 67 Total Protein 5.1 L Albumin 3.0 L ASSESSMENT/PLAN: POD #1: Flexible Bronchoscopy and Left VATs Wedge resection x 2, Lymph node sampling, and Intercostal block Asthma COPD Schizophrenia Former smoker, quit in 2017 LLL Adenocarcinoma Follow pathology CT to water seal O2 as needed BD TX PRN No indication for systemic steroids No smoking Incentive Spirometry Noted prophylatic ABX Follow daily CXR while CT is intact PO as tolerated VTE prophylaxis Cardiac Telemetry monitoring for AFib Dr Arevalo Critical care time spent in reviewing chart, evaluating patient and formulating plan - 36 minutes.
--- NOTE | 2018-10-17 14:16 | EKG ---
Test Reason : Blood Pressure : / mmHG Vent. Rate : 095 BPM Atrial Rate : 031 BPM P-R Int : 152 ms QRS Dur : 090 ms QT Int : 376 ms P-R-T Axes : 020 -22 -05 degrees QTc Int : 472 ms SINUS RHYTHM WITH FREQUENT PREMATURE VENTRICULAR COMPLEXES ABNORMAL ECG WHEN COMPARED WITH ECG OF 27-SEP-2018 16:46, QRS AXIS SHIFTED RIGHT NONSPECIFIC T WAVE ABNORMALITY NOW EVIDENT IN INFERIOR LEADS T WAVE INVERSION NO LONGER EVIDENT IN ANTERIOR LEADS Confirmed by ALANIS OCHOA MD ([id number]) on 10/17/2018 2:15:49 PM Referred By: Alex Owens Confirmed By:ALANIS OCHOA MD
--- NOTE | 2018-10-17 17:08 | PATH ---
Cytology Non-Gynecological Report Patient Name: LEONIDAS EDWARD Med. Rec. #: [id number] /Age/Gender: 1955 (Age: 63) / F Account: [id number] Location: ICU NEWS LIBRARY DIRECTOR Taken: 10/16/2018 Received: 10/16/2018 Reported: 10/17/2018 Physicians: Alex Owens M.D. Specimen(s) Received PLEURAL FLUID Clinical History Pleural fluid Final Diagnosis PLEURAL FLUID FOR CYTOLOGY: SATISFACTORY FOR EVALUATION NO MALIGNANT CELLS IDENTIFIED. RARE MESOTHELIAL CELLS, RARE NEUTROPHILS, AND RARE LYMPHOCYTES PRESENT. Comment: See concurrent material ([id number]). Electronically Signed Tamar Gordon M.D. Gross Description Approximately 20 cc of yellow fluid received fresh. One cytofunnel prepared and Pap stained. One cellblock prepared.
[2018-10-17] MEDS: oxyCODONE HCL 5 MG TABLET PO PRN (19:54)
[2018-10-17] MEDS ORDERED: ACETAMINOPHEN 325 MG TABLET (FP) PO ONE (20:12)
[2018-10-17] MEDS: SENNOSIDES 8.6MG TABLET (FP) PO SCH (21:05)
[2018-10-17] MEDS: CHLORHEXIDINE GLUCONATE 4% CLEANSER FOR DECOLONIZATION TP SCH (21:06)
[2018-10-18] MEDS: DOCUSATE SODIUM 100 MG CAPSULE (FP) PO SCH ×3 (05:53→21:26)
[2018-10-18] MEDS: HEPARIN NA (PORCINE) 5,000 UNITS/ML 1ML VIAL SQ SCH ×3 (05:54→21:26)
[2018-10-18 07:33] LABS: BASO % 0.2 % (0-2.0); EOS % 0.2 % (0-4.5); HEMATOCRIT 35.4 % (32.4-45.2); HEMOGLOBIN 11.9 GM/dL (10.7-15.3); LYMPH % 13.6 % (8-40); MCHC 33.7 g/dl (32.0-36.0); MEAN CELL VOLUME 97.9 fl (80-96); MEAN PLT VOLUME 8.8 fl (7.5-11.1); PLATELET COUNT 118 K/MM3 (134-434); RBC 3.61 M/mm3 (3.60-5.2); RDW 14.1 % (11.6-15.6); WHITE BLOOD COUNT 4.6 K/mm3 (4.0-10.0)
--- NOTE | 2018-10-18 07:38 | PN ---
Progress Note, Physician Chief Complaint: No new complaints denies any SOB or chest pain - Current Medication List Current Medications: Active Medications Acetaminophen (Ofirmev Injection -) 1,000 mg IVPB Q6H PRN PRN Reason: PAIN LEVEL 4 - 6 Last Admin: 10/16/18 21:26 Dose: 1,000 mg Albuterol Sulfate (Ventolin Hfa Inhaler -) 2 puff IH Q4HWA PRN PRN Reason: SHORTNESS OF BREATH Chlorhexidine Gluconate (Hibiclens For Decolonization -) 1 applic TP HS [facility] Last Admin: 10/17/18 21:06 Dose: Not Given Docusate Sodium (Colace -) 100 mg PO TID [facility] Last Admin: 10/18/18 05:53 Dose: 100 mg Fluoxetine HCl (Prozac -) 20 mg PO DAILY [facility] Last Admin: 10/17/18 09:04 Dose: 20 mg Heparin Sodium (Porcine) (Heparin -) 5,000 unit SQ TID [facility] Last Admin: 10/18/18 05:54 Dose: 5,000 unit Ipratropium [place] (Atrovent 0.02% Nebulizer -) 1 amp NEB RQID [facility] Last Admin: 10/17/18 20:10 Dose: 1 amp [place] Carbonate (Eskalith -) 300 mg PO BID [facility] Last Admin: 10/17/18 21:05 Dose: 300 mg Mupirocin (Bactroban Ointment (For Decolonization) -) 1 applic NS BID [facility] Stop: 10/21/18 21:59 Last Admin: 10/17/18 21:05 Dose: Not Given Non-Formulary Medication (Umeclidinium [place] [Incruse Ellipta]) 1 puff IH DAILY [facility] Olanzapine (Zyprexa -) 15 mg PO DAILY [facility] Last Admin: 10/17/18 09:05 Dose: 15 mg Ondansetron HCl (Zofran Injection) 4 mg IVPUSH Q6H PRN PRN Reason: NAUSEA AND/OR VOMITING Oxycodone HCl (Roxicodone -) 10 mg PO Q4H PRN PRN Reason: PAIN LEVEL 6-10 Last Admin: 10/17/18 19:54 Dose: 10 mg Senna (Senna -) 2 tab PO [facility] Last Admin: 10/17/18 21:05 Dose: 2 tab - Objective Vital Signs: Vital Signs Temperature 98.6 F 10/18/18 06:00 Pulse Rate 72 10/18/18 05:33 Respiratory Rate 20 10/18/18 05:33 Blood Pressure 104/68 10/18/18 05:33 O2 Sat by Pulse Oximetry (%) 100 10/17/18 09:00 Elderly F S/O Left LL resection on chest tube HEENT: Mm moist, no anemia, PERRLA NECK: No JVd No Bruit CHEST: S/P Left LL resection on Chest tube CTA B/L ABD: No distention non tender EXT: No edema feet, no calf tenderness, Pulses + [employer]: AOX[employer] non focal Labs: INR, PTT INR 1.07 (0.83-1.09) 10/17/18 05:30 CBC, BMP 10/18/18 06:40 10/18/18 06:40 Problem List - Problems (1) Adenocarcinoma, lung Assessment/Plan: S/P resection still chest tube F/O CT surgery recommendation, incentive spirometry Code(s): C34.90 - MALIGNANT NEOPLASM OF UNSP PART OF UNSP BRONCHUS OR LUNG (2) COPD with asthma Assessment/Plan: Stable cont current management Code(s): J44.9 - CHRONIC OBSTRUCTIVE PULMONARY DISEASE, UNSPECIFIED (3) Schizophrenia Assessment/Plan: Stable will F/U Lithi+um level Code(s): F20.9 - SCHIZOPHRENIA, UNSPECIFIED
[2018-10-18] MEDS: IPRATROPIUM BR 0.02% 0.5 MG/2.5 ML VIAL.NEB. NEB SCH ×4 (07:40→20:30)
[2018-10-18 07:58] LABS: ALBUMIN 2.6 g/dl (3.4-5.0); ALK PHOS 62 U/L (45-117); ANION GAP 6 MMOL/L (8-16); BILIRUBIN,TOTAL 0.7 mg/dL (0.2-1); BLOOD UREA NITROGEN 8 mg/dL (7-18); CALCIUM 8.3 mg/dL (8.5-10.1); CHLORIDE 112 mmol/L (98-107); CO2 26 mmol/L (21-32); CREATININE 0.5 mg/dL (0.55-1.3); GLUCOSE,RANDOM 100 mg/dL (74-106); POTASSIUM 3.5 mmol/L (3.5-5.1); SGOT/AST 9 U/L (15-37); SGPT/ALT 9 U/L (13-61); SODIUM 144 mmol/L (136-145); TOT PROT 4.8 g/dl (6.4-8.2)
--- NOTE | 2018-10-18 09:03 | PN ---
Progress Note (short form) - Note Progress Note: 63yo F s/p Left VATS and chest tube placement, pt seen and examined at bedside. Pt states that she is breathing well. Only complains of some pain around the tube. Pt denies n/v, fever, chills. Last Vital Signs Temp Pulse Resp BP Pulse Ox 98.6 F 72 20 104/68 100 10/18/18 06:00 10/18/18 05:33 10/18/18 05:33 10/18/18 05:33 10/17/18 09:00 CBC, BMP 10/18/18 06:40 10/18/18 06:40 PE: Gen: A&O x3 Resp: breathing comfortably Abd: soft, nontender, nondistended Chest: Lt chest tube in place, incisions clean no erythema or discharge. Problem List - Problems (1) Adenocarcinoma, lung Assessment/Plan: Plan -Chest tube removed at bedside. -follow up CXR -if cxr no pneumo, will clear pt for discharge from CT surg -pt should follow up with Dr. Owens in 1 week. Code(s): C34.90 - MALIGNANT NEOPLASM OF UNSP PART OF UNSP BRONCHUS OR LUNG
--- NOTE | 2018-10-18 10:35 | PN ---
Progress Note, Physician History of Present Illness: PULMONARY - Current Medication List Current Medications: Active Medications Acetaminophen (Ofirmev Injection -) 1,000 mg IVPB Q6H PRN PRN Reason: PAIN LEVEL 4 - 6 Last Admin: 10/16/18 21:26 Dose: 1,000 mg Albuterol Sulfate (Ventolin Hfa Inhaler -) 2 puff IH Q4HWA PRN PRN Reason: SHORTNESS OF BREATH Chlorhexidine Gluconate (Hibiclens For Decolonization -) 1 applic TP HS [facility] Last Admin: 10/17/18 21:06 Dose: Not Given Docusate Sodium (Colace -) 100 mg PO TID [facility] Last Admin: 10/18/18 05:53 Dose: 100 mg Fluoxetine HCl (Prozac -) 20 mg PO DAILY [facility] Last Admin: 10/17/18 09:04 Dose: 20 mg Heparin Sodium (Porcine) (Heparin -) 5,000 unit SQ TID [facility] Last Admin: 10/18/18 05:54 Dose: 5,000 unit Ipratropium [place] (Atrovent 0.02% Nebulizer -) 1 amp NEB RQID [facility] Last Admin: 10/18/18 07:40 Dose: 1 amp [place] Carbonate (Eskalith -) 300 mg PO BID [facility] Last Admin: 10/17/18 21:05 Dose: 300 mg Mupirocin (Bactroban Ointment (For Decolonization) -) 1 applic NS BID [facility] Stop: 10/21/18 21:59 Last Admin: 10/17/18 21:05 Dose: Not Given Non-Formulary Medication (Umeclidinium [place] [Incruse Ellipta]) 1 puff IH DAILY [facility] Olanzapine (Zyprexa -) 15 mg PO DAILY [facility] Last Admin: 10/17/18 09:05 Dose: 15 mg Ondansetron HCl (Zofran Injection) 4 mg IVPUSH Q6H PRN PRN Reason: NAUSEA AND/OR VOMITING Oxycodone HCl (Roxicodone -) 10 mg PO Q4H PRN PRN Reason: PAIN LEVEL 6-10 Last Admin: 10/17/18 19:54 Dose: 10 mg Senna (Senna -) 2 tab PO [facility] Last Admin: 10/17/18 21:05 Dose: 2 tab - Objective Vital Signs: Vital Signs Temperature 98.6 F 10/18/18 06:00 Pulse Rate 72 10/18/18 05:33 Respiratory Rate 20 10/18/18 05:33 Blood Pressure 104/68 10/18/18 05:33 O2 Sat by Pulse Oximetry (%) 100 10/17/18 09:00 Labs: CBC, BMP 10/18/18 06:40 10/18/18 06:40 INR, PTT INR 1.07 (0.83-1.09) 10/17/18 05:30 Assessment/Plan ASSESSMENT/PLAN: POD #1: Flexible Bronchoscopy and Left VATs Wedge resection x 2, Lymph node sampling, and Intercostal block Asthma COPD Schizophrenia Former smoker, quit in 2017 LLL Adenocarcinoma Follow pathology CT to water seal O2 as needed BD TX PRN No indication for systemic steroids No smoking Incentive Spirometry Noted prophylatic ABX Follow daily CXR while CT is intact PO as tolerated VTE prophylaxis DR ESTEVES
[2018-10-18] MEDS ORDERED: PT OWN MED DRAWER 7, Y5N ONE (10:47)
[2018-10-18] MEDS: FLUoxetine HCL 20 MG CAPSULE (FP) PO SCH (10:48)
[2018-10-18] MEDS: LITHIUM CARBONATE 300 MG CAPSULE (FP) PO SCH ×2 (10:49→21:26)
[2018-10-18] MEDS: OLANZapine 5 MG TABLET PO SCH (10:49)
[2018-10-18] MEDS: MUPIROCIN 2% TOPICAL OINTMENT FOR DECOLONIZATION NS SCH ×2 (10:49→21:24)
[2018-10-18] MEDS: oxyCODONE HCL 5 MG TABLET PO PRN ×2 (10:51→21:30)
--- NOTE | 2018-10-18 10:58 | PN ---
Progress Note, Physician History of Present Illness: PULMONARY ALERT,-RESP DISTRESS,-SOB,CHEST TUBE REMOVED W/O COMPLICATIONS - Current Medication List Current Medications: Active Medications Acetaminophen (Ofirmev Injection -) 1,000 mg IVPB Q6H PRN PRN Reason: PAIN LEVEL 4 - 6 Last Admin: 10/16/18 21:26 Dose: 1,000 mg Albuterol Sulfate (Ventolin Hfa Inhaler -) 2 puff IH Q4HWA PRN PRN Reason: SHORTNESS OF BREATH Chlorhexidine Gluconate (Hibiclens For Decolonization -) 1 applic TP HS [facility] Last Admin: 10/17/18 21:06 Dose: Not Given Docusate Sodium (Colace -) 100 mg PO TID [facility] Last Admin: 10/18/18 05:53 Dose: 100 mg Fluoxetine HCl (Prozac -) 20 mg PO DAILY [facility] Last Admin: 10/18/18 10:48 Dose: 20 mg Heparin Sodium (Porcine) (Heparin -) 5,000 unit SQ TID [facility] Last Admin: 10/18/18 05:54 Dose: 5,000 unit Ipratropium [place] (Atrovent 0.02% Nebulizer -) 1 amp NEB RQID [facility] Last Admin: 10/18/18 07:40 Dose: 1 amp [place] Carbonate (Eskalith -) 300 mg PO BID [facility] Last Admin: 10/18/18 10:49 Dose: 300 mg Mupirocin (Bactroban Ointment (For Decolonization) -) 1 applic NS BID [facility] Stop: 10/21/18 21:59 Last Admin: 10/18/18 10:49 Dose: Not Given Non-Formulary Medication (Umeclidinium [place] [Incruse Ellipta]) 1 puff IH DAILY [facility] Olanzapine (Zyprexa -) 15 mg PO DAILY [facility] Last Admin: 10/18/18 10:49 Dose: 15 mg Ondansetron HCl (Zofran Injection) 4 mg IVPUSH Q6H PRN PRN Reason: NAUSEA AND/OR VOMITING Oxycodone HCl (Roxicodone -) 10 mg PO Q4H PRN PRN Reason: PAIN LEVEL 6-10 Last Admin: 10/18/18 10:51 Dose: 10 mg Senna (Senna -) 2 tab PO [facility] Last Admin: 10/17/18 21:05 Dose: 2 tab - Objective Vital Signs: Vital Signs Temperature 98.6 F 10/18/18 06:00 Pulse Rate 72 10/18/18 05:33 Respiratory Rate 20 10/18/18 05:33 Blood Pressure 104/68 10/18/18 05:33 O2 Sat by Pulse Oximetry (%) 100 10/17/18 09:00 Constitutional: Yes: Well Nourished, Calm Eyes: Yes: WNL HENT: Yes: WNL Neck: Yes: WNL Cardiovascular: Yes: Regular Rate and Rhythm, S1, S2 Respiratory: Yes: Diminished Gastrointestinal: Yes: Normal Bowel Sounds, Soft Extremities: Yes: WNL Edema: No Labs: CBC, BMP 10/18/18 06:40 10/18/18 06:40 INR, PTT INR 1.07 (0.83-1.09) 10/17/18 05:30 Problem List - Problems (1) Adenocarcinoma, lung Code(s): C34.90 - MALIGNANT NEOPLASM OF UNSP PART OF UNSP BRONCHUS OR LUNG (2) COPD with asthma Code(s): J44.9 - CHRONIC OBSTRUCTIVE PULMONARY DISEASE, UNSPECIFIED (3) Asthma Code(s): J45.909 - UNSPECIFIED ASTHMA, UNCOMPLICATED Assessment/Plan ASSESSMENT/PLAN: s/p Flexible Bronchoscopy and Left VATs Wedge resection x 2, Lymph node sampling , and Intercostal block Asthma COPD Schizophrenia Former smoker, quit in 2017 LLL Adenocarcinoma O2 as needed BD TX PRN No indication for systemic steroids No smoking Incentive Spirometry Noted prophylatic ABX F/U CXR PO as tolerated VTE prophylaxis Check final path DR ESTEVES
--- NOTE | 2018-10-18 11:19 | PN ---
Progress Note (short form) - Note Progress Note: Chest tube removed this AM without issue. Dressing placed immediately over site. Pt tolerated well. Stat chest xray ordered. Will f/u. RN aware.
--- NOTE | 2018-10-18 11:39 | OP ---
DATE OF OPERATION: 10/16/2018 PREOPERATIVE DIAGNOSIS: Lung cancer, chronic obstructive pulmonary disease, former smoker, schizoaffective disorder. POSTOPERATIVE DIAGNOSIS: Lung cancer, chronic obstructive pulmonary disease, former smoker, schizoaffective disorder. PROCEDURE: Flexible bronchoscopy, left video-assisted thoracoscopic surgery, wedge resection x2, mediastinal lymph node sampling, and intercostal nerve block. INDICATIONS: This 63-year-old female was recently diagnosed with a left lower lobe [id number] lung cancer. She was seen in clinic with Dr. Owens. Risks, benefits, and alternative treatment options were presented to patient. Patient consented for surgery. SURGEON: Alex Owens MD CO-SURGEON: Shabana Berman MD COMPLICATIONS: None. DRAINS/TUBES/CATHETER: A 28-Armenian chest tube. HARDWARE/IMPLANTS: Not applicable. BLOOD/FLUID LOSS: 50 mL. PROCEDURE IN DETAIL: Patient was brought into the OR, was placed in a supine position. IV access was done by the anesthesiologist. IV sedation was given by the anesthesiologist. Patient was intubated. Bronchoscopy was performed. No endobronchial lesion. Hereafter, after bronchoscopy, left lung isolation was achieved. An A-line was introduced by anesthesiologist. Patient was placed on a right lateral decubitus position, left side up flexed position, prepped and draped in sterile fashion. Heparin subcutaneously 5000 units was given. Compression devices on the lower extremities were applied. The 3-incision technique was applied, camera was inserted. Inferior pulmonary ligament was transected. Level 9 lymph node was sampled. Hereafter, the superior segment was palpated, and the tumor in the superior segment was identified, and it was resected with a good margin. Frozen section of margin was negative. Hereafter, the small nodule close to pulmonary ligament was identified and also transected using stapler. Hemostasis was secured. A 28-Armenian chest tube was inserted. Lung was expanded. Incisions were closed using 0 Vicryl at the level of fascia, 2-0 Vicryl at level of subcutaneous tissue, and 3-0 Monocryl at level of skin. Dr. Owens and Mckayla performed the procedure as dictated above, were in the OR during the whole procedure, and remained available after. Mckayla was the co-surgeon for this surgery. There was no ACGME credited fellow resident available. SHABANA BERMAN M.D. VICTORIANO/[id number]
[2018-10-18 14:18] VITALS: BMI 21.9
[2018-10-18] MEDS: CHLORHEXIDINE GLUCONATE 4% CLEANSER FOR DECOLONIZATION TP SCH (21:25)
[2018-10-18] MEDS: SENNOSIDES 8.6MG TABLET (FP) PO SCH (21:26)
[2018-10-19] MEDS: HEPARIN NA (PORCINE) 5,000 UNITS/ML 1ML VIAL SQ SCH (06:45)
[2018-10-19] MEDS: DOCUSATE SODIUM 100 MG CAPSULE (FP) PO SCH (06:48)
[2018-10-19] MEDS: IPRATROPIUM BR 0.02% 0.5 MG/2.5 ML VIAL.NEB. NEB SCH ×2 (07:40→11:20)
--- NOTE | 2018-10-19 07:49 | PN ---
Progress Note (short form) - Note Progress Note: Thoracic Surgery: Tube removed yesterday. OK to dc today if cleared by hospitalist team. F/U in 1-2 weeks with me.
--- NOTE | 2018-10-19 07:51 | PN ---
Progress Note, Physician Chief Complaint: No new complaints denies any SOB or chest pain, chest pain removed yesterday - Current Medication List Current Medications: Active Medications Acetaminophen (Ofirmev Injection -) 1,000 mg IVPB Q6H PRN PRN Reason: PAIN LEVEL 4 - 6 Last Admin: 10/16/18 21:26 Dose: 1,000 mg Albuterol Sulfate (Ventolin Hfa Inhaler -) 2 puff IH Q4HWA PRN PRN Reason: SHORTNESS OF BREATH Chlorhexidine Gluconate (Hibiclens For Decolonization -) 1 applic TP HS [facility] Last Admin: 10/18/18 21:25 Dose: Not Given Docusate Sodium (Colace -) 100 mg PO TID [facility] Last Admin: 10/19/18 06:48 Dose: Not Given Fluoxetine HCl (Prozac -) 20 mg PO DAILY [facility] Last Admin: 10/18/18 10:48 Dose: 20 mg Heparin Sodium (Porcine) (Heparin -) 5,000 unit SQ TID [facility] Last Admin: 10/19/18 06:45 Dose: 5,000 unit Ipratropium [place] (Atrovent 0.02% Nebulizer -) 1 amp NEB RQID [facility] Last Admin: 10/18/18 20:30 Dose: 1 amp [place] Carbonate (Eskalith -) 300 mg PO BID [facility] Last Admin: 10/18/18 21:26 Dose: 300 mg Mupirocin (Bactroban Ointment (For Decolonization) -) 1 applic NS BID [facility] Stop: 10/21/18 21:59 Last Admin: 10/18/18 21:24 Dose: Not Given Non-Formulary Medication (Umeclidinium [place] [Incruse Ellipta]) 1 puff IH DAILY [facility] Olanzapine (Zyprexa -) 15 mg PO DAILY [facility] Last Admin: 10/18/18 10:49 Dose: 15 mg Ondansetron HCl (Zofran Injection) 4 mg IVPUSH Q6H PRN PRN Reason: NAUSEA AND/OR VOMITING Oxycodone HCl (Roxicodone -) 10 mg PO Q4H PRN PRN Reason: PAIN LEVEL 6-10 Last Admin: 10/18/18 21:30 Dose: 10 mg Senna (Senna -) 2 tab PO [facility] Last Admin: 10/18/18 21:26 Dose: Not Given - Objective Vital Signs: Vital Signs Temperature 98.1 F 10/19/18 06:00 Pulse Rate 67 10/19/18 06:00 Respiratory Rate 20 10/19/18 06:00 Blood Pressure 100/56 L 10/19/18 06:00 O2 Sat by Pulse Oximetry (%) 99 10/18/18 21:00 Elderly F S/O Left LL resection on chest tube HEENT: Mm moist, no anemia, PERRLA NECK: No JVd No Bruit CHEST: Left CT removed ABD: No distention non tender EXT: No edema feet, no calf tenderness, Pulses + 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: AOX3 non focal Labs: INR, PTT INR 1.07 (0.83-1.09) 10/17/18 05:30 Problem List - Problems (1) Adenocarcinoma, lung Assessment/Plan: S/P resection yesterday chest tube removed rpt CXR subtle Pneumothorax, CT surgery recommendation, incentive spirometry Code(s): C34.90 - MALIGNANT NEOPLASM OF UNSP PART OF UNSP BRONCHUS OR LUNG (2) COPD with asthma Assessment/Plan: Stable cont current management Code(s): J44.9 - CHRONIC OBSTRUCTIVE PULMONARY DISEASE, UNSPECIFIED (3) Schizophrenia Assessment/Plan: Stable will F/U Lithi+um level Code(s): F20.9 - SCHIZOPHRENIA, UNSPECIFIED (4) Hypokalemia Assessment/Plan: repleted F/U BMP Code(s): E87.6 - HYPOKALEMIA
[2018-10-19 08:01] LABS: BASO % 0.1 % (0-2.0); EOS % 0.2 % (0-4.5); HEMATOCRIT 34.1 % (32.4-45.2); HEMOGLOBIN 11.6 GM/dL (10.7-15.3); MCH 33.2 pg (25.7-33.7); MCHC 33.9 g/dl (32.0-36.0); MEAN PLT VOLUME 8.7 fl (7.5-11.1); NEUT % 72.7 % (42.8-82.8); PLATELET COUNT 115 K/MM3 (134-434); RBC 3.48 M/mm3 (3.60-5.2); RDW 13.8 % (11.6-15.6); WHITE BLOOD COUNT 3.7 K/mm3 (4.0-10.0)
[2018-10-19 08:50] LABS: ANION GAP 5 MMOL/L (8-16); BLOOD UREA NITROGEN 7 mg/dL (7-18); CALCIUM 8.4 mg/dL (8.5-10.1); CHLORIDE 111 mmol/L (98-107); CO2 28 mmol/L (21-32); CREATININE 0.5 mg/dL (0.55-1.3); GLUCOSE,RANDOM 103 mg/dL (74-106); POTASSIUM 3.3 mmol/L (3.5-5.1); SODIUM 143 mmol/L (136-145)
[2018-10-19] MEDS: FLUoxetine HCL 20 MG CAPSULE (FP) PO SCH (09:40)
[2018-10-19] MEDS: OLANZapine 5 MG TABLET PO SCH (09:40)
[2018-10-19] MEDS: LITHIUM CARBONATE 300 MG CAPSULE (FP) PO SCH (09:40)
[2018-10-19] MEDS: oxyCODONE HCL 5 MG TABLET PO PRN (09:44)
[2018-10-19] MEDS ORDERED: POTASSIUM CHLORIDE ORAL LIQUID 20 MEQ/15 ML PO ONE (10:45)
[2018-10-19] MEDS: MUPIROCIN 2% TOPICAL OINTMENT FOR DECOLONIZATION NS SCH (11:53)
--- NOTE | 2018-10-19 12:06 | PN ---
Progress Note (short form) - Note Progress Note: Thoracic Surgery CXR normal postop. OK for discharge.
--- NOTE | 2018-10-19 12:27 | DS ---
Physical Examination Vital Signs: Vital Signs Temperature 98.1 F 10/19/18 06:00 Pulse Rate 67 10/19/18 06:00 Respiratory Rate 20 10/19/18 09:00 Blood Pressure 100/56 L 10/19/18 06:00 O2 Sat by Pulse Oximetry (%) 100 10/19/18 09:00 Elderly F S/O Left LL resection on chest tube HEENT: Mm moist, no anemia, PERRLA NECK: No JVd No Bruit CHEST: Left CT removed ABD: No distention non tender EXT: No edema feet, no calf tenderness, Pulses + GUIDE SETTER: AOX3 non focal Labs: CBC, BMP 10/19/18 07:10 10/19/18 07:10 Discharge Summary Reason For Visit: ADENOCARCINOMA Current Active Problems Adenocarcinoma, lung (Acute) COPD with asthma (Acute) Hypokalemia (Acute) Prophylactic measure (Acute) S/P thoracotomy (Acute) Schizophrenia (Acute) Procedures: Principal: Left sided VATS LL resection Hospital Course: 63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 Condition: Stable - Instructions Diet, Activity, Other Instructions: Dr. Owens Discharge Instructions Dear LEONIDAS EDWARD, Post Operative Instructions Physical activity Resume your normal everyday activity as tolerated no heavy lifting or exercise until seen by your surgeon. You may walk unlimited amounts of and climb stairs. You may resume driving the car when you feel safe and comfortable behind the wheel and are no longer taking narcotic medication. Wound care Keep incisions clean and dry. Do not apply lotions or ointments to the incisions Diet There are no dietary restrictions. Eat healthy, high-fiber foods. Drink 6 to 8 glasses of liquid each day. This will assist in keeping your bowels are regular. Pain management You may take Tylenol or acetaminophen or Ibuprofen (for example, Motrin, Advil etc.) Any pain prescription medication ordered should be taken as prescribed for moderate to severe pain. Call Dr. Owens for any of the following: Severe pain not relieved by medication Fever of 101 or higher Excessive bleeding or drainage on dressing Inability to urinate If you experience any chest pain or shortness of breath please seek emergency treatment immediately. Call the office to confirm your post operative appointment. Disposition: HOME - Home Medications Comprehensive Discharge Medication List: Ambulatory Orders [place] Carbonate [Eskalith -] 300 mg PO BID 05/15/18 Fluoxetine HCl [Prozac] 20 mg PO DAILY 05/16/18 Albuterol Sulfate Inhaler - [Ventolin HFA Inhaler -] 2 puff IH Q4HWA PRN Umeclidinium [place] [Incruse Ellipta] 1 puff IH DAILY 05/17/18 Aspirin 162 mg PO DAILY 09/27/18 Olanzapine [Zyprexa -] 15 mg PO DAILY 10/16/18 Acetaminophen Injection [Ofirmev Injection -] 1,000 mg IVPB Q6H PRN #30 vial 11/05 Ipratropium 0.02% Nebulizer [Atrovent 0.02% Nebulizer -] 1 amp NEB RQID #0 amp 10/19/18 Mupirocin Ointment [Bactroban Ointment (For Decolonization) -] 1 applic NS BID applic 10/19/18 Oxycodone HCl 5 mg PO Q4H PRN 3 Days #18 tablet MDD 6 pills 10/19/18 Sennosides [Senna -] 2 tab PO HS #30 tablet 10/19/18
[2018-10-19 12:29] VITALS: BP 110/76; PULSE 71; TEMP 98.5
--- NOTE | 2018-10-19 12:56 | PN ---
Progress Note (short form) - Note Progress Note: Feels overall better. No CP or SOB. Intake & Output 10/16/18 10/17/18 10/18/18 10/19/18 23:59 23:59 23:59 23:59 Intake Total 2625 2300 710 210 Output Total 670 1730 110 110 Balance 1955 570 600 100 Weight 124 lb 15.998 oz 140 lb 3.424 oz 132 lb 130 lb Last Vital Signs Temp Pulse Resp BP Pulse Ox 98.5 F 71 20 110/76 100 10/19/18 12:28 10/19/18 12:28 10/19/18 12:28 10/19/18 12:28 10/19/18 09:00 Active Medications Acetaminophen (Ofirmev Injection -) 1,000 mg IVPB Q6H PRN PRN Reason: PAIN LEVEL 4 - 6 Last Admin: 10/16/18 21:26 Dose: 1,000 mg Albuterol Sulfate (Ventolin Hfa Inhaler -) 2 puff IH Q4HWA PRN PRN Reason: SHORTNESS OF BREATH Docusate Sodium (Colace -) 100 mg PO TID [facility] Last Admin: 10/19/18 06:48 Dose: Not Given Fluoxetine HCl (Prozac -) 20 mg PO DAILY [facility] Last Admin: 10/19/18 09:40 Dose: 20 mg Heparin Sodium (Porcine) (Heparin -) 5,000 unit SQ TID [facility] Last Admin: 10/19/18 06:45 Dose: 5,000 unit Ipratropium [place] (Atrovent 0.02% Nebulizer -) 1 amp NEB RQID [facility] Last Admin: 10/19/18 07:40 Dose: 1 amp [place] Carbonate (Eskalith -) 300 mg PO BID [facility] Last Admin: 10/19/18 09:40 Dose: 300 mg Non-Formulary Medication (Umeclidinium [place] [Incruse Ellipta]) 1 puff IH DAILY [facility] Olanzapine (Zyprexa -) 15 mg PO DAILY [facility] Last Admin: 10/19/18 09:40 Dose: 15 mg Ondansetron HCl (Zofran Injection) 4 mg IVPUSH Q6H PRN PRN Reason: NAUSEA AND/OR VOMITING Oxycodone HCl (Roxicodone -) 10 mg PO Q4H PRN PRN Reason: PAIN LEVEL 6-10 Last Admin: 10/19/18 09:44 Dose: 10 mg Senna (Senna -) 2 tab PO HS [facility] Last Admin: 10/18/18 21:26 Dose: Not Given GENERAL: AAOx3 in NAD HEAD: Normal with no signs of trauma. EYES: Pupils equal, round and reactive to light, extraocular movements intact, sclera anicteric, NECK: Normal range of motion, supple LUNGS:decrease breath sound at the bases HEART: Regular rate and rhythm, normal S1 and S2 without murmur, rub or gallop. ABDOMEN: Soft, nontender, not distended, normoactive bowel sounds, no guarding, UPPER EXTREMITIES: 2+ pulses, warm, well-perfused. No cyanosis. No clubbing. Cap refill <2 seconds. No peripheral edema. LOWER EXTREMITIES: 2+ pulses, warm, well-perfused. No calf tenderness. No peripheral edema. NEUROLOGICAL: Non-focal PSYCHIATRIC: Cooperative. SKIN: Warm, dry Laboratory Results - last 24 hr 10/19/18 10/19/18 07:10 07:10 WBC 3.7 L RBC 3.48 L Hgb 11.6 Hct 34.1 MCV 98.0 H MCH 33.2 MCHC 33.9 RDW 13.8 Plt Count 115 L MPV 8.7 Absolute Neuts (auto) 2.7 Neutrophils % 72.7 Lymphocytes % 16.0 Monocytes % 11.0 H Eosinophils % 0.2 Basophils % 0.1 Nucleated RBC % 0 Sodium 143 Potassium 3.3 L Chloride 111 H Carbon Dioxide 28 Anion Gap 5 L BUN 7 Creatinine 0.5 L Creat Clearance w eGFR > 60 Random Glucose 103 Calcium 8.4 L ASSESSMENT/PLAN: POD #3: Flexible Bronchoscopy and Left VATs Wedge resection x 2, Lymph node sampling, and Intercostal block Asthma COPD Schizophrenia Former smoker, quit in 2017 LLL Adenocarcinoma Follow pathology BD [place] PRN No smoking Incentive Spirometry D/C planning Follow in the office Dr Arevalo
--- NOTE | 2018-10-24 09:59 | PATH ---
Surgical Pathology Report Patient Name: LEONIDAS EDWARD [facility]. Rec. #: [id number] /Age/Gender: 1955 (Age: 63) / F Account: [id number] Location: 4 W TELEMETRY U Taken: 10/16/2018 Received: 10/16/2018 Reported: 10/24/2018 Physicians: Alex Owens M.D. Specimen(s) Received A: LEFT LUNG LEVEL 9 NODE B: LEFT LOWER LOBE SUPERIOR SEGMENT WEDGE, FINAL MARGIN C: LEFT LOWER LOBE SUPERIOR SEGMENT WEDGE D: LEFT LOWER LOBE WEDGE #2 E: LEVEL 9 NODE Clinical History Left lung adenocarcinoma Intraoperative Consult Diagnosis A. Level IX node, frozen section: No definitive malignancy identified, Fibrovascular tissue. No lymphoid tissue identified. B. Left lower lobe superior segment wedge #1 final specimen margin, frozen section: Benign lung parenchyma. No definitive malignancy. C. Left lower lobe superior segment wedge #1, gross examination: Grossly negative margins, approximately 1 cm. D. Left lower lobe wedge #2, frozen section: Lesional tissue, favor smooth muscle proliferation. Grossly negative margins. Freddy Barriga M.D., 10/16/2018 Final Diagnosis A. LYMPH NODE, LEVEL 9, LEFT, EXCISION (FS): FRAGMENT OF BENIGN FIBROVASCULAR AND ADIPOSE TISSUE. NO CARCINOMA IDENTIFIED. NO LYMPHOID TISSUE IDENTIFIED. B. LUNG, LEFT, LOWER LOBE, SUPERIOR SEGMENT, FINAL MARGIN, WEDGE RESECTION (FS): BENIGN LUNG PARENCHYMA. NO CARCINOMA IDENTIFIED. C. LUNG, LEFT, LOWER LOBE, SUPERIOR SEGMENT #1, WEDGE RESECTION (FS): INVASIVE ADENOCARCINOMA, POORLY DIFFERENTIATED (G3), MICROPAPILLARY PREDOMINANT (45%), ACINAR (35%), SOLID (10%), AND LEPIDIC (10%) COMPONENTS. INVASIVE CARCINOMA MEASURES 1.8 CM IN GREATEST MICROSCOPIC DIMENSION. PLEURAL INVASION IDENTIFIED (PL1). LYMPHOVASCULAR INVASION IDENTIFIED. TUMOR SPREAD THROUGH AIRSPACES (GERBER) IDENTIFIED. SURGICAL MARGINS ARE NEGATIVE FOR CARCINOMA, CARCINOMA IS 1 CM FROM SURGICAL MARGIN. SEE INVASIVE CARCINOMA SUMMARY BELOW. PATHOLOGIC STAGE (pTNM): pT2a N0 D. LUNG, LEFT, LOWER LOBE #2, WEDGE RESECTION (FS): LEIOMYOMA. SURROUNDING BENIGN LUNG PARENCHYMA WITH REACTIVE CHANGES. SEE COMMENT. E. LYMPH NODE, LEVEL 9, EXCISION: THREE LYMPH NODES NEGATIVE FOR CARCINOMA ON H &E AND CONFIRMED BY AE1/ 3 IMMUNOHISTOCHEMICAL STAIN (0/3). Comment: Part C, Immunohistochemical stain performed and interpreted at [facility] show the tumor is positive for cytokeratin AE1/3. Additional immunohistochemical stains performed at [place], [place] ([id number]) and interpreted at [facility] show the tumor is positive for TTF-1. D2-40 highlights vascular invasion. Elastic stain (blocks: C1, C2, C3) show focal visceral pleural invasion (PL1). Part D, Immunohistochemical stain performed and interpreted at [facility] show the neoplasm is positive for SMM-HC. Additional immunohistochemical stains performed at [place], [place] ([id number]) and interpreted at [facility] show the neoplasm is positive for SMA, supportive of smooth muscle differentiation and consistent with leiomyoma. Comments Lung Carcinoma: Surgical Pathology Cancer Case Summary (Based on AJCC 8th edition) Procedure _X__ Wedge resection Specimen Laterality _X__ Left Tumor Site _X__ Lower lobe Tumor Size Greatest dimension (centimeters): _1.8__ cm Tumor Focality _X__ Single tumor Histologic Type (select all that apply) X__ Invasive adenocarcinoma, micropapillary predominant Other subtypes present: Micropapillary (45%), acinar (35%), solid (10%), and lepidic (10%) components. Histologic Grade _X__ G3: Poorly differentiated Visceral Pleura Invasion _X__ Present Lymphovascular Invasion _X__ Present Direct Invasion of Adjacent Structures _X__ No adjacent structures present Margins _X__ All margins are uninvolved by carcinoma Margins examined (specify): __parenchymal_ Distance of invasive carcinoma from closest margin (centimeters): _1__ cm Bronchial Margin _X__ Not applicable Vascular Margin _X__ Not applicable Parenchymal Margin _X__ Uninvolved by lepidic component of invasive adenocarcinoma Treatment Effect _X__ No known presurgical therapy Regional Lymph Nodes Lymph Node Examination Number of Lymph Nodes Involved: 0 Number of Lymph Nodes Examined: 3 Pathologic Stage Classification (pTNM, AJCC 8th Edition) Primary Tumor (pT) _X__ pT2a: Invades visceral pleura (PL1). TNM Descriptors Regional Lymph Nodes (pN) _X__ pN0: No regional lymph node metastasis Electronically Signed Tamar Gordon M.D. Gross Description A. Received fresh labeled "level IX node," are 2 red-brown soft tissue fragments measuring 0.6 and 0.7 cm in greatest dimension. The specimens are submitted in toto for frozen section. The frozen section residue is entirely submitted in one cassette. B. Received fresh labeled "left lower lobe superior segment wedge #1 final specimen margin," is a 0.6 x 0.4 x 0.2 cm red-brown portion of soft tissue. The specimen is submitted in toto for frozen section. The frozen section residue is entirely submitted in one cassette. C. Received fresh labeled "left lower lobe superior segment wedge #1," is a 7.5 x 4.0 x 1.5 cm lung wedge with a stapled margin of resection. The pleura is red-brown with a focal retraction. Sectioning reveal a 1.5 x 0.9 x 0.9 cm marinelli chávez, indurated mass abutting the pleura at the area of the retraction. The mass is 1.0 cm from the staple line. The remaining lung parenchyma is red-brown, spongy and unremarkable. Parcel Post Order Clerk sections are submitted in 6 cassettes as follows: 1-full face section of mass; 7-7-ssxeoxvwpk mass; 9-1-bhhqrmloai lung parenchyma; 6-shave of staple line. D. Received fresh labeled "left lower lobe wedge #2," is a 5.5 x 2.2 x 1.5 cm lung wedge with a stapled margin of resection. The pleura is red-brown and intact. Sectioning reveals a 0.8 x 0.6 x 0.6 cm marinelli, firm nodule. The nodule is 0.7 cm from the stapled margin. The nodule abuts the pleura but does not appear to invade through it. The remaining lung parenchyma is red-brown, spongy and unremarkable. A ict sales representative portion of the nodule is submitted for frozen section. Parcel Post Order Clerk sections are submitted in 5 cassettes as follows: 1-frozen section residue; 2-3-nodule; 4-uninvolved lung parenchyma; 5-6-shave of staple line. E. Received in formalin labeled "level IX node," are 3 marinelli-black portions of soft tissue ranging from 0.5-0.6 cm in greatest dimension, possibly consistent with lymph nodes. The specimens are submitted in toto in one cassette. DL10/16/2018 saudi10/16/2018
== END 2018-10-19 13:46 | disposition home or self-care (01) | DRG 120 ==
LOC: JSAMEDAYSX 10-16 09:38 → JICU 10-16 16:26 → J4W 10-17 17:48
PROVIDERS: ADMIT Internal Medicine; ATTEND Internal Medicine
PROC: 0BTJ4ZZ Resection of Left Lower Lung Lobe, Percutaneous Endoscopic Approach (ICD-10-PCS; principal; 2018-10-16 11:00)
PROC: 07T74ZZ Resection of Thorax Lymphatic, Percutaneous Endoscopic Approach (ICD-10-PCS; 2018-10-16 11:00)
PROC: 0BJ08ZZ Inspection of Tracheobronchial Tree, Via Natural or Artificial Opening Endoscopic (ICD-10-PCS; 2018-10-16 11:00)
DX: C34.32 Malignant neoplasm of lower lobe, left bronchus or lung (principal); J44.9 Chronic obstructive pulmonary disease, unspecified; F25.9 Schizoaffective disorder, unspecified; E87.6 Hypokalemia; F32.9 Major depressive disorder, single episode, unspecified; Z87.891 Personal history of nicotine dependence
CPT/HCPCS: 36415; 36600; 71045-TC-FY; 80048; 80053; 80178; 82803; 83735; 84100; 85025; 85027; 85610; 85730; 86850; 86900; 86901; 87070; 87075; 87102; 87116; 87205; 87206; 87210; 88108; 88305-TC; 88307-TC; 88331-TC; 93005; 93010; 94010; 94640; 97116-GP; 97162-GP; J0131; J1644